=== PATIENT | female | born 1940 | race Caucasian/White ===

== ENCOUNTER 2017-02-01 12:49 | Inpatient (IN) ==
[2017-02-01] MEDS ORDERED: ONDANSETRON 4 MG/2 ML VIAL IV STA (14:07)
[2017-02-01] MEDS ORDERED: ASPIRIN 325 MG TABLET PO STA (14:07)
[2017-02-01] MEDS ORDERED: FUROSEMIDE 100 MG/10 ML VIAL IV STA (14:07)
[2017-02-01] MEDS ORDERED: methylPREDNISolone SOD SUC 125 MG/2 ML VIAL IV STA (14:07)
[2017-02-01] MEDS ORDERED: FUROSEMIDE 100 MG/10 ML VIAL ONE (14:16)
[2017-02-01] MEDS ORDERED: ONDANSETRON 4 MG/2 ML VIAL ONE (14:16)
[2017-02-01] MEDS ORDERED: ASPIRIN 325 MG TABLET ONE (14:16)
[2017-02-01] MEDS ORDERED: methylPREDNISolone SOD SUC 125 MG/2 ML VIAL ONE (14:17)
[2017-02-01 14:18] LABS: Basophils % 0.4 % (0.0-0.8); Eosinophils # 0.1 10*3/uL (0.0-0.87); Eosinophils % 1.3 % (0.00-10.9); Hematocrit 35.9 VOL% (35.7-47.0); Hemoglobin 12.1 GM/DL (12.0-16.0); Immature Granulocytes % 0.3 %; Immature Granulocytes Absolute 0.02 #; Lymphocytes # 1.6 10*3/uL (1.4-4.0); Lymphocytes % 23.1 % (21.3-54.2); Mean Corpuscular HGB Conc 33.7 GM/DL (32-36); Mean Corpuscular Hemoglobin 32 PG (27-34); Mean Corpuscular Volume 94.5 FL (87-102); Mean Platelet Volume 9.8 FL (9.6-12.0); Monocytes # 0.6 10*3/uL (0.11-0.8); Neutrophils # 4.6 10*3/uL (1.4-7.4); Neutrophils % 66.9 % (38.7-73.9); Platelet Count 217 T/CUMM (130-400); Red Cell Distribution Width 13.1 % (9.3-17.3); White Blood Count 6.9 T/CUMM (4-12)
[2017-02-01 14:25] LABS: D-Dimer 1.5 MG/L FEU; PT Patient Result 10.7 SECS
[2017-02-01] MEDS ORDERED: ALBUTEROL 2.5 MG/3 ML NEB RESP TX SCH (14:30)
[2017-02-01 14:32] LABS: Alanine Aminotransferase 38 U/L (13-56); Albumin 3.2 G/DL (3.4-5.0); Alkaline Phosphatase 70 U/L (45-117); Aspartate Amino Transferase 30 U/L (0-37); Blood Urea Nitrogen 16 MG/DL (7-18); Calcium 8.3 MG/DL (8.5-10.1); Glucose 100 MG/DL (74-106); Magnesium 1.9 MG/DL (1.8-2.4); Osmolality,Calculated 283.1 MOS/KG (273-304); Potassium 4.4 MMOL/L (3.5-5.1); Sodium 142 MMOL/L (136-145); Total Protein 6.7 G/DL (6.4-8.3); Troponin I Only < 0.015 NG/ML (0.00-0.045)
--- NOTE | 2017-02-01 14:36 | XRay Report ---
Portable chest Date: 02/01/2017 Clinical history: Shortness of breath Comparison: 07/16/2016 Technique: Portable AP sitting chest Findings: The heart is minimally enlarged with calcification in the aortic knob. Progressive density at the left lung base with minimal diffuse parenchymal findings at the right lung base. Prior right shoulder replacement with additional postoperative findings in the left humerus. Degenerative changes. Impression: Progressive atelectasis/infiltration/edema at the lung bases. Some of the density of the left lung base may be related to overlying soft tissues. It is difficult to exclude a small left pleural effusion. PROCEDURE INTERPRETED AT [facility] DEPARTMENT OF RADIOLOGY Final Report Signed by: Dr. Lesley Anthony
--- NOTE | 2017-02-01 14:44 | EKG Report ---
Stationary ECG Study [facility] ER Test Date: 02/01/2017 2:42:12 PM Pat Name: DOM ROSE Department: Room: Gender: F Trauma Nurse: : 1940 Requested by: Fernando Tirado Order Number: [id number] Reading MD: JOSI MARQUES Intervals [place] Rate: 54 P: 35 MI: 154 QRS: 44 QRSD: 82 T: 81 QT: 449 QTc: 436 Interpretive Statements SINUS BRADYCARDIA at 54 BPM LOW QRS VOLTAGE IN PRECORDIAL LEADS Electronically Signed On 02-03-17 18:36:54 CDT by JOSI MARQUES [email or web address]
[2017-02-01 14:57] LABS: ABG Base Excess -1.1 MMOL/L (-2.5-2.5); ABG HCO3 24.2 MMOL/L (20-26); ABG Oxygen Saturation 98.6 % (95-100); ABG PCO2 42.7 MM HG (35-48); ABG PH 7.372 (7.35-7.45); ABG TCO2 25.6 MMOL/L (23-27)
[2017-02-01] MEDS ORDERED: LEVOFLOXACIN INJ 750 MG in PREMIX 1 EACH IV STA (15:03)
[2017-02-01] MEDS ORDERED: LEVOFLOXACIN INJ 150 ML IV ONE (15:34)
--- NOTE | 2017-02-01 15:54 | Ultrasound Report ---
Exam: Bilateral lower extremity venous Doppler ultrasound Comparison: 04/25/2010 Clinical history: Bilateral lower extremity leg swelling Technique: Duplex scan of the lower extremity veins using B-mode/grayscale scaled imaging and Doppler spectral analysis and color flow. Findings: Major venous structures of the lower extremities demonstrate a normal course and caliber. Normal color-flow study and spectral analysis. There is normal compression and augmentation of bilateral common femoral, superficial femoral and popliteal veins. The proximal bilateral greater saphenous veins appear to be patent. Impression: No evidence to suggest deep venous thrombosis within either lower extremity. Ultrasound images were captured and stored. PROCEDURE INTERPRETED AT [facility] DEPARTMENT OF RADIOLOGY Final Report Signed by: Dr. Lesley Anthony
--- NOTE | 2017-02-01 16:20 | CT Report ---
Exam: CT chest with contrast, PE study Date: 02/01/2017 Comparison: Chest x-ray 02/01/2017 Reason: Shortness of breath, elevated d-dimer Technique: Axial images of the chest were obtained after administration of 80 cc of IV Omnipaque 350 intravenous contrast. Coronal reformatted images were also acquired. The study was performed per pulmonary embolism protocol. Total DLP: 888.10 Findings: There is no evidence of pulmonary embolism with suboptimal contrast in the subsegmental pulmonary arteries. The heart is enlarged with no evidence of aortic dissection. Coronary artery calcification are noted with tortuosity of the arteries arising from the aortic arch. No chest lymphadenopathy. Fatty infiltration of the liver with 35mm hiatal hernia. Degenerative changes are noted. Diffuse groundglass opacities with minimal atelectasis. No pleural effusion or pleural calcification. Impression: No evidence of pulmonary embolism. Suboptimal contrast in the subsegmental pulmonary arteries. Cardiomegaly with coronary artery calcifications. Diffuse groundglass opacities in the lungs which can be seen with edema, pneumonitis, fibrosis, etc. Minimal atelectasis. 35 mm hiatal hernia with fatty infiltration of the liver. This CT exam was performed using one or more the following dose reduction techniques: Automated exposure control, adjustment of the MA and/or KV according to patient size, or use of iterative reconstruction technique. PROCEDURE INTERPRETED AT [facility] DEPARTMENT OF RADIOLOGY Final Report Signed by: Dr. Lesley Anthony
--- NOTE | 2017-02-01 16:55 | Emergency Department Note ---
Nargis Peña Hilary, am scribing for, and in the presence of, Fernando Pantoja MD 13:59. Scarlett Peña Charles R, MD, personally performed the services described in this documentation, ascribed by Preeti Barillas in my presence, and it is both accurate and complete 655 . Arrival - Arrival Chief Complaint: Upper Respiratory Stated Complaint: wheezing/coughing/cant breathe ED Nursing Triage Note: Pt c/o Cough, wheezing, sore throat and SOB since last night Mode of Arrival: Wheelchair Limitations: No Limitations Source: Patient, RN Notes Reviewed - History of Present Illness HPI Narrative: Pt is a 76 y/o female presenting to the ED with c/o wheezing and coughing which onset last night. Pt states that she is having a hard time breathing and it worsens when she lays down. Pts daughter is in the room and states that her legs are swollen and worse than normal and pt denies taking her Lasix pills. Pt has a PMHx of Migraines, a Seizure in 2013, Afib, Bronchitis and diverticulitis. No other complaints or problems stated in the ED. Onset (ago): hour(s) Allergies/Adverse Reactions: Allergies Allergy/AdvReac Type Severity Reaction Status Date / Time Penicillins Allergy Severe ANAPHYLAXIS Verified 06/02/15 12:24 codeine Allergy Intermediate RASH Verified 06/02/15 12:24 topiramate Allergy Intermediate RASH Verified 06/02/15 12:24 zaleplon [From Sonata] AdvReac Intermediate Confusion Verified 07/05/15 12:46 red dye AdvReac Unknown Unknown/Unable Verified 06/02/15 12:24 to obtain Home Medications: Home Medications Medication Instructions Recorded Confirmed Type Ropinirole HCl 2 mg PO BEDTIME 03/20/15 02/01/17 History Simvastatin [Zocor] 40 mg PO BEDTIME tablet 09/12/15 02/01/17 Rx Gabapentin Cap/Tab [Neurontin 1,200 mg PO BID 01/21/16 02/01/17 History Cap/Tab] Omeprazole 20 mg PO DAILY 01/21/16 02/01/17 History levETIRAcetam TAB [Keppra Tab] 250 mg PO QAM 01/21/16 02/01/17 History Topiramate [Topiramate] 50 mg PO BID 07/16/16 02/01/17 History Oxybutynin Chloride [Oxybutynin 5 mg PO BEDTIME 02/01/17 02/01/17 History Chloride ER] Venlafaxine [Effexor] 75 mg PO BID 02/01/17 02/01/17 History levETIRAcetam TAB [Keppra Tab] 500 mg PO BEDTIME 02/01/17 02/01/17 History Review of System - Review of System 12 point system: reviewed and no additional remarkable complaints except as stated - Review of System Constitutional: Absent: fever Respiratory: Present: cough, respiratory distress, wheezing Medical,Surgical,& Family Hx - Medical History Cardio: History of: Cardiac Dysrhythmia Neurology: History of: Migraine, Seizures Respiratory: History of: Bronchitis Genitourinary: History of: Recurring Urinary Tract Infections No history of: Kidney Stones Gastrointestinal: History of: Bowel Obstruction, Diverticulitis/ Diverticulosis , GERD Musculoskeletal: History of: Back/Neck Problems (BACK SURGERY X 3), Musculoskeletal Problems - Surgical History Cardiac Surgeries: Sugical HX of: Cardiac Catheterization Abdominal Surgeries: Surgical HX of: Abdominal Surgery (PARTIAL COLECTOMY), Appendectomy, Colonoscopy Patient denies: Cholecystectomy Reproductive Surgeries: Surgical HX of;: Hysterectomy (1965) Orthopedic Surgeries: Surgical HX of;: Orthopedic Surgery (RIGHT SHOULDER), Total Knee Replacement (BILATERAL) - Social History Smoking Status: Never smoker Exam Vital Signs: Vital Signs Temperature 97.9 F 02/01/17 13:50 Pulse Rate 67 02/01/17 13:50 Respiratory Rate 24 02/01/17 13:50 Blood Pressure 137/66 02/01/17 13:50 O2 Sat by Pulse Oximetry 95 02/01/17 12:50 - General General appearance: alert, in no apparent distress - Head Head exam: Present: atraumatic, normocephalic - Eye Eye exam: Present: normal appearance, PERRL, EOMI - ENT ENT exam: Present: mucous membranes moist, TM's normal bilaterally - Neck Neck exam: Present: full ROM, trachea midline. Absent: tenderness - Chest Chest inspection: Present: symmetric chest wall rise. Absent: tenderness - Respiratory Respiratory exam: Present: rales (bilaterally), respiratory distress (Pt speaks in 1-2 word sentences), rhonchi (bilaterally), wheezes (Decreased breath sounds) - Cardiovascular Cardiovascular exam: Present: regular rate, normal rhythm - Abdominal Exam Abdominal exam: Present: soft - Extremities Exam Extremities exam: Present: full ROM, pedal edema (3+ pedal edema). Absent: tenderness - Back Exam Back exam: Present: full ROM. Absent: tenderness - Neurological Exam Neurological exam: Present: alert, oriented X3, CN II-XII intact. Absent: motor sensory deficit - Psychiatric Psychiatric exam: Present: normal affect, normal mood - Skin Skin exam: Present: warm, dry, intact, normal color. Absent: rash Course - Consultations Consultation #1: Dr. Darrell Hilario will admit for Dr. Dr. Keating Time: 16:54 Results - Labs CBC & BMP: 02/01/17 14:14 02/01/17 14:14 Lab Results: I have reviewed the patients labs Labs: Laboratory Tests 02/01/17 02/01/17 14:14 14:14 WBC 6.9 RBC 3.80 Hgb 12.1 Hct 35.9 Chloride 111 H BUN/Creatinine Ratio 22.00 H Calcium 8.3 L Albumin 3.2 L Albumin/Globulin Ratio 0.9 L Laboratory Tests 02/01/17 14:50 ABG pO2 163.0 H - Diagnostic Findings Procedure: Chest x-ray: report reviewed by me (Progressive atelectasis/ infiltration/edema at the lung bases. Some of the density of the left lung base may be related to overlying soft tissues. It is difficutle to exclude a small left pleural effusion.) Disposition Clinical Impression: Upper respiratory infection, Bronchitis, Acute dyspnea, Pneumonia, Pleural effusion Case discussed with: patient, patient's family Disposition: Still a Patient Condition: Stable Time of Disposition: 16:55
[2017-02-01] MEDS ORDERED: ALBUTEROL/IPRATROPIUM 3 ML NEB RESP TX PRN (19:36)
[2017-02-01] MEDS ORDERED: HYDROmorphone 2 MG/1 ML VIAL IV PRN (19:36)
[2017-02-01] MEDS ORDERED: ACETAMINOPHEN 325 MG TABLET PO PRN (19:36)
[2017-02-01] MEDS ORDERED: ONDANSETRON 4 MG/2 ML VIAL IV PRN (19:36)
[2017-02-01] MEDS: OXYBUTYNIN XL 5 MG TABLET PO SCH (20:29)
[2017-02-01] MEDS: levETIRAcetam 500 MG TABLET PO SCH (20:29)
[2017-02-01] MEDS: rOPINIRole 1 MG TABLET PO SCH (20:29)
[2017-02-01] MEDS: DOCUSATE SODIUM 100 MG CAPSULE PO SCH (20:30)
[2017-02-01] MEDS: TOPIRAMATE 25 MG TABLET PO SCH (20:30)
[2017-02-01] MEDS: SIMVASTATIN 40 MG TABLET PO SCH (20:30)
[2017-02-01] MEDS: VENLAFAXINE 75 MG TABLET PO SCH (20:30)
[2017-02-01] MEDS: GABAPENTIN 600 MG TABLET PO SCH (20:39)
[2017-02-01] MEDS: SODIUM CHLORIDE 0.9% 1,000 ML IV SCH (20:39)
[2017-02-01 22:52] LABS: Troponin I Only 0.041 NG/ML (0.00-0.045)
[2017-02-01] MEDS: methylPREDNISolone SOD SUC 40 MG/1 ML VIAL IV SCH (22:54)
[2017-02-02] MEDS: methylPREDNISolone SOD SUC 40 MG/1 ML VIAL IV SCH ×3 (05:35→21:33)
[2017-02-02 06:14] LABS: Basophils % 0.1 % (0.0-0.8); Hematocrit 37.6 VOL% (35.7-47.0); Hemoglobin 12.2 GM/DL (12.0-16.0); Immature Granulocytes % 0.5 %; Immature Granulocytes Absolute 0.05 #; Lymphocytes # 0.7 10*3/uL (1.4-4.0); Lymphocytes % 7.9 % (21.3-54.2); Mean Corpuscular HGB Conc 32.4 GM/DL (32-36); Mean Corpuscular Hemoglobin 31 PG (27-34); Mean Corpuscular Volume 96.2 FL (87-102); Mean Platelet Volume 9.8 FL (9.6-12.0); Monocytes # 0.2 10*3/uL (0.11-0.8); Monocytes % 1.8 % (1.7-12.7); Neutrophils # 8.3 10*3/uL (1.4-7.4); Neutrophils % 89.7 % (38.7-73.9); Platelet Count 241 T/CUMM (130-400); Red Blood Count 3.91 MC/CUMM (3.8-5.5); Red Cell Distribution Width 13.1 % (9.3-17.3); White Blood Count 9.3 T/CUMM (4-12)
[2017-02-02 06:51] LABS: Alanine Aminotransferase 38 U/L (13-56); Albumin 3.3 G/DL (3.4-5.0); Alkaline Phosphatase 73 U/L (45-117); Aspartate Amino Transferase 20 U/L (0-37); Bilirubin,Total < 0.39 MG/DL (0.2-1.0); Blood Urea Nitrogen 18 MG/DL (7-18); Calcium 8.4 MG/DL (8.5-10.1); Cholesterol 176 MG/DL (50-200); Glucose 180 MG/DL (74-106); HDL Cholesterol 67 MG/DL (40-60); Magnesium 1.9 MG/DL (1.8-2.4); Osmolality,Calculated 289.1 MOS/KG (273-304); Potassium 4.2 MMOL/L (3.5-5.1); Risk Ratio 2.63; Sodium 142 MMOL/L (136-145); Total Protein 7.1 G/DL (6.4-8.3); Triglycerides 47 MG/DL (2-150); VLDL CHOLESTEROL 9.4 MG/DL
--- NOTE | 2017-02-02 07:47 | Family Practice History&Phys ---
Assessment and Plan (1) Chest pain Status: Acute Assessment and plan: 02/02/2017: Will consult cardiology. I think this is atypical chest pain Current Visit: Yes History of Present Illness Chief complaint: Chest pain History of present illness: Ms. Gonzalez is a 76 year old female Patient 76-year-old white female presented emergency room after developing substernal chest tightness. Patient states this occurred at rest and made her short of breath a little sweaty. She became short of breath with this and that alarmed her. She was brought to the emergency room an EKG and initial cardiac isoenzymes were negative. She has seen Dr. Santos in the past for paroxysmal atrial fibrillation requiring DC cardioversion. Patient denies any chest pain at present. She did have a CT of the chest reveal no evidence of pulmonary embolus. She also had lower extremity Dopplers that were negative. She has not noticed any increasing dyspnea with exertion. She states she is faithfully using her CPAP. Home Medications Medication Instructions Recorded Confirmed Type Ropinirole HCl 2 mg PO BEDTIME 03/20/15 02/01/17 History Simvastatin [Zocor] 40 mg PO BEDTIME tablet 09/12/15 02/01/17 Rx Gabapentin Cap/Tab [Neurontin 1,200 mg PO BID 01/21/16 02/01/17 History Cap/Tab] Omeprazole 20 mg PO DAILY 01/21/16 02/01/17 History levETIRAcetam TAB [Keppra Tab] 250 mg PO QAM 01/21/16 02/01/17 History Topiramate [Topiramate] 50 mg PO BID 07/16/16 02/01/17 History Oxybutynin Chloride [Oxybutynin 5 mg PO BEDTIME 02/01/17 02/01/17 History Chloride ER] Venlafaxine [Effexor] 75 mg PO BID 02/01/17 02/01/17 History levETIRAcetam TAB [Keppra Tab] 500 mg PO BEDTIME 02/01/17 02/01/17 History Allergies Allergy/AdvReac Type Severity Reaction Status Date / Time Penicillins Allergy Severe ANAPHYLAXIS Verified 06/02/15 12:24 codeine Allergy Intermediate RASH Verified 06/02/15 12:24 topiramate Allergy Intermediate RASH Verified 06/02/15 12:24 zaleplon [From Sonata] AdvReac Intermediate Confusion Verified 07/05/15 12:46 red dye AdvReac Unknown Unknown/Unable Verified 06/02/15 12:24 to obtain - Constitutional Constitutional: Present: fatigue. Absent: chills, fever(s), weakness - EENT Eyes: Absent: blurry vision, loss of vision Ears: Absent: decreased hearing, ear pain Nose, mouth and throat: Absent: hoarseness, nasal congestion, sinus pressure, sore throat - Cardiovascular Cardiovascular: Present: chest pain at rest, dyspnea, dyspnea on exertion. Absent: diaphoresis, orthopnea, palpitations, PND - Respiratory Respiratory: Present: cough, dyspnea, dyspnea on exertion. Absent: wheezing, snoring - Gastrointestinal Gastrointestinal: Absent: abdominal pain, diarrhea, hematochezia, melena, nausea , vomiting - Genitourinary Genitourinary: Absent: dysuria, hematuria, urinary hesitancy - Musculoskeletal Musculoskeletal: Present: back pain. Absent: arthralgias - Neurological Neurological: Absent: confusion, dizziness - Psychiatric Psychiatric: Absent: anxiety, depression - Endocrine Endocrine: Absent: fatigue, polydipsia, polyphagia - Hematologic/Lymphatic Hematologic/Lymphatic: Absent: easy bleeding, easy bruising Medical,Surgical,& Family Hx - Medical History Cardio: History of: Cardiac Dysrhythmia Psychological: History of: Depression Neurology: History of: Migraine, Seizures (2014) HEENT: History of: Eye Problem (cataracts removed) Respiratory: History of: Bronchitis, Pneumonia Genitourinary: History of: Recurring Urinary Tract Infections No history of: Kidney Stones Gastrointestinal: History of: Bowel Obstruction, Diverticulitis/ Diverticulosis , GERD, Hemorrhoids Musculoskeletal: History of: Back/Neck Problems (BACK SURGERY X 3), Musculoskeletal Problems - Surgical History Cardiac Surgeries: Sugical HX of: Cardiac Catheterization Abdominal Surgeries: Surgical HX of: Abdominal Surgery (PARTIAL COLECTOMY), Appendectomy, Colonoscopy Patient denies: Cholecystectomy Reproductive Surgeries: Surgical HX of;: Hysterectomy (1965) Orthopedic Surgeries: Surgical HX of;: Orthopedic Surgery (RIGHT SHOULDER), Total Knee Replacement (BILATERAL) - Social History Smoking Status: Never smoker Frequency of Alcohol Use: None Type of Drug Use: None Exam - Constitutional Vitals: Period Temp Pulse Resp BP Sys/[place] Pulse Ox Last 24 Hr 97.3 F-98.1 F 74-92 16-20 127-145/58-72 96-99 Exam: General: Objective patient is a well-developed obese white female in no acute distress. She was sleeping soundly when I entered the room but aroused easily. She gave a good history. HEENT: Pupils equal and reactive to light. Patent nares and airway Neck: No meningismus, adenopathy, thyromegaly. There are no auscultated carotid bruits. Cardiovascular: Regular rhythm. No murmurs or gallops Chest: Clear to auscultation without rales rhonchi wheezes. Abdomen: Soft nontender to palpation No masses, rebound, guarding or tenderness. Neuro: Cranial nerves intact and DTRs and strength symmetric in all extremities. Dermatologic: No evidence of abnormal lesions or masses. Musculoskeletal: There is no joint swelling or tenderness or deformity. Extremities: Patient has 3+ pitting pretibial edema of both lower extremities Results - Labs CBC & BMP: 02/02/17 04:54 02/02/17 04:54 Lab Results: I have reviewed the past 24 hour labs - EKG EKG shows: bradycardia (Sinus bradycardia noted.) - Diagnostic Findings Procedure: CT - chest: report reviewed by me (No evidence of PE), Ultrasound: report reviewed by me (No evidence of DVT)
--- NOTE | 2017-02-02 08:14 | EKG Report ---
Stationary ECG Study [facility] Test Date: 02/02/2017 8:14:26 AM Pat Name: DOM ROSE Department: Room: 218 Gender: F Bureau Director: VIJAY : 1940 Requested by: Bryce Martínez Order Number: [id number] Reading MD: JOSI MARQUES Intervals [place] Rate: 80 P: 73 AR: 179 QRS: 72 QRSD: 88 T: 79 QT: 369 QTc: 405 Interpretive Statements SINUS RHYTHM at 80 bpm Electronically Signed On 02-05-17 16:47:53 CDT by JOSI MARQUES [email or web address]
[2017-02-02 08:56] LABS: Troponin I Only 0.019 NG/ML (0.00-0.045)
[2017-02-02] MEDS ORDERED: PANTOPRAZOLE 40 MG VIAL IV SCH (09:00)
--- NOTE | 2017-02-02 09:11 | XRay Report ---
Exam: XR chest 2V Indication: Shortness of breath Comparison study: 02/01/2017 Findings: The cardiac silhouette is borderline enlarged, similar to prior. Contours appear within normal limits There is no focal consolidation, pneumothorax or pleural effusion identified. There is improved aeration within the left lung base, which may represent differences in positioning or resolution of atelectasis/infiltrate. Lungs are mildly hyperexpanded, similar to prior. Postsurgical changes of both shoulders appear similar to prior. Impression: Improved aeration within the left lung base. Otherwise, no active disease. PROCEDURE INTERPRETED AT [facility] DEPARTMENT OF RADIOLOGY Final Report Signed by: Armando Guajardo
[2017-02-02] MEDS: VENLAFAXINE 75 MG TABLET PO SCH ×2 (10:08→21:32)
[2017-02-02] MEDS: GABAPENTIN 600 MG TABLET PO SCH ×2 (10:08→21:32)
[2017-02-02] MEDS: TOPIRAMATE 25 MG TABLET PO SCH ×2 (10:08→21:31)
[2017-02-02] MEDS: PANTOPRAZOLE 40 MG TABLET PO SCH (10:09)
[2017-02-02] MEDS: DOCUSATE SODIUM 100 MG CAPSULE PO SCH ×2 (10:09→21:32)
[2017-02-02] MEDS: levETIRAcetam 250 MG TABLET PO SCH (10:09)
[2017-02-02] MEDS: SODIUM CHLORIDE 0.9% 1,000 ML IV SCH ×2 (10:14→21:33)
--- NOTE | 2017-02-02 11:19 | Pulmonology Consult Note ---
History of Present Illness Chief complaint: Acute bronchitis with bronchospasm. S OB. FENG. History of present illness: Ms. Gonzalez is a 76 year old white female whom I been asked to see in pulmonary consultation for evaluation and treatment. This patient is followed by Dr. Rigoberto Keating and Dr. Louis rico. The patient was in her usual state of health. She went to bed feeling fine. She woke up during the night with severe shortness of breath. She had a burning sensation in her chest and she coughs so hard she developed symptoms of costochondritis. She has had some sputum production and she hears wheezing. She says this has never happened to her before. She denies any solid dysphasia. She occasionally has mild reflux. The patient woke up short of breath she shortly got out of bed and went to the bathroom and vomited. She said she thought she had had too many deviled eggs. The remainder the review of systems are negative. Allergies. Penicillin. Codeine. Topiramate. Sonata. Home medicines. See list. Past history. Atrial fib. Seizure in 2013. History of migraine headache. History of depression. Previous cataract surgery. History of recurrent urinary tract infection. History of diverticulitis and diverticulosis. History of bowel obstruction, gastroesophageal reflux disease and hemorrhoids. Past history of back and neck problems. She has had 3 back surgeries. Partial colectomy. Appendectomy. Hysterectomy 1964. Right shoulder surgery. Bilateral total knee replacements. Social history. Never smoked. Does not use alcohol. 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 Noncontributory. Chest x-ray. No infiltrates. No abnormalities noted CT of the chest. No pulmonary emboli. Hiatal hernia. Doppler venograms of lower extremities. No evidence of deep venous thrombophlebitis. Microbiology. Negative. Lab. Admit white count 6900 with 67 segs 23 lymphs 8 monos. H&H is 12.2/37.6 with normal indices and platelets of 241,000. Electrolytes are normal. Creatinine is 1.0. BUN is 18. Glucoses are within the normal range. Liver function tests are normal. Cardiac enzymes are negative. Natruretic peptide is normal. Total protein is 7.1 with an albumin of 3.3 and a globulin 3.8. Physical exam. Vital signs. See below Eyes face lips tongue are normal. Neck symmetrical. No meningismus. Lymphatics. No submandibular cervical supraclavicular or epitrochlear adenopathy. Chest. Coarse large airway congestion and wheeze. A few high-pitched end expiratory wheezes. Heart. No gallop. Abdomen. Nontender. Positive bowel sounds. Lower extremities. Chronic venous stasis changes. Edema. Erythema along the anterior aspect of the lower legs bilaterally. Appears to be mild lymphangitis Venous exam. Neck and upper extremities are normal. Lower extremities show chronic venous stasis. Arterial. Carotid upstroke is fair. Upper extremity pulses are easily palpable. Lower extremity pulses cannot be palpated secondary to edema. No evidence of ischemia. Neurologic. Cranial nerves are intact. Patient moves all 4 extremities. Skin. No cancerous infectious lesions of the face or hands. Mild lymphangitis of both lower legs. The remainder the exam is noncontributory. Impression. 1. Acute bronchitis and bronchospasm developing during the night. Patient had vomit shortly after this began. I suspect she had aspiration from gastroesophageal reflux during the night. 2. Hiatal hernia 3. History of atrial fib 4. Bilateral lower extremity lymphangitis secondary to chronic venous stasis 5. History of seizure in 2013 6. See past history Plan. 1. Sputum for Gram stain culture and sensitivity. 2. Agree with antibiotics 3. Agree with steroids. 4. Singulair 10 mg daily 5. If peripheral wheezes continue I will consider IV Aminophyllin with attention to the patient's heart rate. Home Medications Medication Instructions Recorded Confirmed Type Ropinirole HCl 2 mg PO BEDTIME 03/20/15 02/01/17 History Simvastatin [Zocor] 40 mg PO BEDTIME tablet 09/12/15 02/01/17 Rx Gabapentin Cap/Tab [Neurontin 1,200 mg PO BID 01/21/16 02/01/17 History Cap/Tab] Omeprazole 20 mg PO DAILY 01/21/16 02/01/17 History levETIRAcetam TAB [Keppra Tab] 250 mg PO QAM 01/21/16 02/01/17 History Topiramate [Topiramate] 50 mg PO BID 07/16/16 02/01/17 History Oxybutynin Chloride [Oxybutynin 5 mg PO BEDTIME 02/01/17 02/01/17 History Chloride ER] Venlafaxine [Effexor] 75 mg PO BID 02/01/17 02/01/17 History levETIRAcetam TAB [Keppra Tab] 500 mg PO BEDTIME 02/01/17 02/01/17 History Allergies Allergy/AdvReac Type Severity Reaction Status Date / Time Penicillins Allergy Severe ANAPHYLAXIS Verified 06/02/15 12:24 codeine Allergy Intermediate RASH Verified 06/02/15 12:24 topiramate Allergy Intermediate RASH Verified 06/02/15 12:24 zaleplon [From Sonata] AdvReac Intermediate Confusion Verified 07/05/15 12:46 red dye AdvReac Unknown Unknown/Unable Verified 06/02/15 12:24 to obtain Exam ([facility]) H&P - Constitutional Vitals: Period Temp Pulse Resp BP Sys/[place] Pulse Ox Last 24 Hr 97.3 F-98.1 F 74-92 16-20 122-145/58-72 96-99 Medical,Surgical,& Family Hx - Medical History Cardio: History of: Cardiac Dysrhythmia Psychological: History of: Depression Neurology: History of: Migraine, Seizures (2013) HEENT: History of: Eye Problem (cataracts removed) Respiratory: History of: Bronchitis, Pneumonia Genitourinary: History of: Recurring Urinary Tract Infections No history of: Kidney Stones Gastrointestinal: History of: Bowel Obstruction, Diverticulitis/ Diverticulosis , GERD, Hemorrhoids Musculoskeletal: History of: Back/Neck Problems (BACK SURGERY X 3), Musculoskeletal Problems - Surgical History Cardiac Surgeries: Sugical HX of: Cardiac Catheterization Abdominal Surgeries: Surgical HX of: Abdominal Surgery (PARTIAL COLECTOMY), Appendectomy, Colonoscopy Patient denies: Cholecystectomy Reproductive Surgeries: Surgical HX of;: Hysterectomy (1965) Orthopedic Surgeries: Surgical HX of;: Orthopedic Surgery (RIGHT SHOULDER), Total Knee Replacement (BILATERAL) - Social History Smoking Status: Never smoker Frequency of Alcohol Use: None Type of Drug Use: None Results - Labs CBC & BMP: 02/02/17 04:54 02/02/17 04:54
[2017-02-02] MEDS: MONTELUKAST 10 MG TABLET PO SCH ×2 (12:39→21:32)
[2017-02-02] MEDS: DEXTROMETHORPHAN ER 6 MG/ML 90 ML/BOTTLE PO PRN (12:45)
[2017-02-02] MEDS: ALBUTEROL/IPRATROPIUM 3 ML NEB RESP TX SCH ×2 (13:32→19:48)
--- NOTE | 2017-02-02 14:00 | Cardiology Consult Note ---
Augie Peña April, RN, am scribing for, and in the presence of, Stan Kramer MD 13:59. Assessment and Plan - Time spent with patient Time spent with patient: Greater than 30 minutes (Due to assessment, planning, documentation, medication) (1) Acute dyspnea Status: Acute Assessment and plan: 1. 76 year-old severely overweight BF with remote history of atrial flutter with cardioversion 2005 (Dr. Santos her primary certified ophthalmic surgical assistant) who was in her usual state of reasonably good health until midnight Wednesday morning when she awakened with sudden severe shortness of breath, diaphoresis, severe cough, and subsequent pleuritic chest pain with tenderness to palpation 2. Normal sinus rhythm is noted with no acute EKG changes, and she is ruled out for myocardial infarction. Her chest pain is clearly reproducible, and appears to be related to forceful coughing. 3. Check echocardiogram to evaluate for structural heart disease 4. Orthopnea noted since her that began 5. One episode of diarrhea 6. 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 Santos Ms. Gonzalez is a 76 year old female who is seen Dr. Santos in the past with a history of atrial flutter, migraine, seizures, bronchitis and pneumonia, recurrent urinary tract infections, bowel obstruction, diverticulitis, reflux, hemorrhoids, and musculoskeletal problems. She had a successful synchronized electrical cardioversion in August 2006 for atrial flutter. I do not have access to the records but she tells me she had a heart cath that was reported as normal several years before that. Other surgical history includes colectomy , appendectomy, hysterectomy, bilateral cataracts, back, right shoulder, bilateral total knee replacements, left arm, and left ankle. Family history is positive for hypertension in mother and siblings, heart disease in mother and siblings, cancer in father and siblings, stroke in mother and siblings, and diabetes in mother and siblings. She reports she is a lifetime non-smoker. Except for being weak and fatigued for about a month or so, she states she was in her usual state of health up until [place] night around midnight when she woke with chest tightness, shortness of breath, wheezing, cough, and dizziness. She also had diarrhea, was vomiting, and was diaphoretic. She tells me her shortness of breath was so bad that she was unable to speak and was worse when lying or walking around, it did improve when she would sit. The chest tightness began around the same time and she describes it as being in the center of her chest and does not radiate. She said it was a constant pain that she rated as a 9-10 on a scale of 1-10. She presented to the emergency department yesterday morning for further evaluation. She is tells me that the chest pain and shortness of breath improved after she got a breathing treatment. Currently she continues to be short of breath, but she tells me that this is improved from when she came to the emergency department. Oxygen is in use via nasal cannula. She currently rates her chest tightness as a 3-4 and a scale of 1-10, and it is sore to touch. She has 2+ edema to both lower extremities, but she states this is her usual amount of swelling. EKG done on admission showed sinus bradycardia with heart rate of 54. Currently telemetry monitoring shows sinus rhythm with heart rate of 69. CT of the chest done yesterday showed no evidence of pulmonary embolism. Venous Doppler done yesterday negative for DVT. Troponin has been negative 3. CC: Rigoberto Keating MD - Home Medications and Allergies Home Medications: Home Medications Medication Instructions Recorded Confirmed Type Ropinirole HCl 2 mg PO BEDTIME 03/20/15 02/01/17 History Simvastatin [Zocor] 40 mg PO BEDTIME tablet 09/12/15 02/01/17 Rx Gabapentin Cap/Tab [Neurontin 1,200 mg PO BID 01/21/16 02/01/17 History Cap/Tab] Omeprazole 20 mg PO DAILY 01/21/16 02/01/17 History levETIRAcetam TAB [Keppra Tab] 250 mg PO QAM 01/21/16 02/01/17 History Topiramate [Topiramate] 50 mg PO BID 07/16/16 02/01/17 History Oxybutynin Chloride [Oxybutynin 5 mg PO BEDTIME 02/01/17 02/01/17 History Chloride ER] Venlafaxine [Effexor] 75 mg PO BID 02/01/17 02/01/17 History levETIRAcetam TAB [Keppra Tab] 500 mg PO BEDTIME 02/01/17 02/01/17 History Allergies/Adverse Reactions: Allergies Allergy/AdvReac Type Severity Reaction Status Date / Time Penicillins Allergy Severe ANAPHYLAXIS Verified 06/02/15 12:24 codeine Allergy Intermediate RASH Verified 06/02/15 12:24 topiramate Allergy Intermediate RASH Verified 06/02/15 12:24 zaleplon [From Sonata] AdvReac Intermediate Confusion Verified 07/05/15 12:46 red dye AdvReac Unknown Unknown/Unable Verified 06/02/15 12:24 to obtain - Constitutional Constitutional: Present: as per HPI - EENT Eyes: Present: blurry vision, requires corrective lense Ears: Absent: decreased hearing, tinnitus Nose, mouth and throat: Present: hoarseness, sore throat. Absent: epistaxis, headache(s), neck pain - Cardiovascular Cardiovascular: Present: chest pain at rest, diaphoresis, dyspnea, dyspnea on exertion, edema, lightheadedness, orthopnea, palpitations. Absent: radiating jaw, neck or arm pain - Respiratory Respiratory: Present: cough, dyspnea, dyspnea on exertion. Absent: hemoptysis - Gastrointestinal Gastrointestinal: Present: abdominal pain, diarrhea, nausea, vomiting. Absent: constipation, hematemesis, hematochezia, melena - Genitourinary Genitourinary: Absent: dysuria, hematuria - Musculoskeletal Musculoskeletal: Present: back pain, limited range of motion, muscle weakness - Neurological Neurological: Present: abnormal gait, dizziness. Absent: abnormal speech, confusion, frequent falls, headache(s), syncope - Psychiatric Psychiatric: Absent: anxiety, confusion, depression - Endocrine Endocrine: Present: fatigue - Hematologic/Lymphatic Hematologic/Lymphatic: Present: easy bruising. Absent: easy bleeding Medical,Surgical,& Family Hx - Medical History Cardio: History of: Cardiac Dysrhythmia (Atrial flutter in 06) Psychological: History of: Depression Neurology: History of: Migraine, Seizures (2013) HEENT: History of: Eye Problem (cataracts removed) Respiratory: History of: Bronchitis, Pneumonia Genitourinary: History of: Recurring Urinary Tract Infections Gastrointestinal: History of: Bowel Obstruction, Diverticulitis/ Diverticulosis , GERD, Hemorrhoids Musculoskeletal: History of: Back/Neck Problems (BACK SURGERY X 3), Musculoskeletal Problems - Surgical History Cardiac Surgeries: Sugical HX of: Cardiac Catheterization Abdominal Surgeries: Surgical HX of: Abdominal Surgery (PARTIAL COLECTOMY), Appendectomy, Colonoscopy Reproductive Surgeries: Surgical HX of;: Hysterectomy (1965) Orthopedic Surgeries: Surgical HX of;: Orthopedic Surgery (Right shoulder, left arm, left ankle), Spinal Surgery (Back 3), Total Knee Replacement (BILATERAL) - Family History Family History: Reports;: Family Cancer (Father and sibling), Family Diabetes ( Mother and siblings), Family Heart Disease (Mother and siblings), Family Hypertension (Mother and siblings), Family Stroke (Mother and siblings) - Social History Smoking Status: Never smoker Have you smoked in the last 12 months: No Frequency of Alcohol Use: None Type of Drug Use: None Lives With:: Children Functional capacity: independent ambulation Physical Examination Vital Signs Temp Pulse Resp BP Pulse Ox 97.9 F 67 24 137/66 95 02/01/17 12:50 02/01/17 12:50 02/01/17 12:50 02/01/17 12:50 02/01/17 12:50 General: Present: Appears Well, No Apparent Distress HEENT: Present: PERRL, Mucus Membranes Moist Neck: Present: Supple Neck, Midline Trachea, No Bruit Cardiac: Present: Reg Rate and Rhythm, No Murmur, Bradycardia Lungs: Present: Normal Breath Sounds, Oxygen (Via nasal cannula), No Wheeze, Rales, Rhonchi Neuro: Absent: Resting Tremor, Essential Tremor Abdomen: Present: Soft, Active Bowel Sounds, Tender Skin: Present: Clear Musculoskeletal: Present: Decreased Range of Motion Extremities: Present: Normal Upper Extr. Pulses, Normal Lower Extr. Pulses, +2 Edema (Bilateral lower extremities). Absent: Normal Gait Result/EKG - Labs CBC & BMP: 02/02/17 04:54 02/02/17 04:54 Lab Results: I have reviewed the past 24 hour labs Labs: Laboratory Results - last 24 hr 02/01/17 02/02/17 02/02/17 22:19 04:54 04:54 WBC 9.3 D RBC 3.91 Hgb 12.2 Hct 37.6 MCV 96.2 MCH 31 MCHC 32.4 RDW 13.1 Plt Count 241 MPV 9.8 Neut % (Auto) 89.7 H Lymph % (Auto) 7.9 L [place] % (Auto) 1.8 Eos % (Auto) 0.0 Baso % (Auto) 0.1 Neut # (Auto) 8.3 H Lymph # (Auto) 0.7 L [place] # (Auto) 0.2 Eos # (Auto) 0.0 Baso # (Auto) 0.0 Immature Gran % 0.5 Nucleated RBC % 0.0 Immature Gran # 0.05 Nucleated RBCs # 0.00 Sodium 142 Potassium 4.2 Chloride 108 H Carbon Dioxide 23 Anion Gap 15.2 H BUN 18 Creatinine 1.00 GFR Calculation 76 BUN/Creatinine Ratio 18.00 Glucose 180 H Calculated Osmolality 289.1 Calcium 8.4 L Magnesium 1.9 Total Bilirubin < 0.39 AST 20 ALT 38 Alkaline Phosphatase 73 Total Creatine Kinase 100 CK-MB (CK-2) 1.9 Troponin I 0.041 B-Natriuretic Peptide Total Protein 7.1 Albumin 3.3 L Globulin 3.8 H Albumin/Globulin Ratio 0.8 L Triglycerides 47 Cholesterol 176 LDL Cholesterol 106.0 VLDL Cholesterol 9.4 HDL Cholesterol 67 H Heart Disease Risk Ratio 2.63 02/02/17 02/02/17 04:54 08:09 WBC RBC Hgb Hct MCV MCH MCHC RDW Plt Count MPV Neut % (Auto) Lymph % (Auto) [place] % (Auto) Eos % (Auto) Baso % (Auto) Neut # (Auto) Lymph # (Auto) [place] # (Auto) Eos # (Auto) Baso # (Auto) Immature Gran % Nucleated RBC % Immature Gran # Nucleated RBCs # Sodium Potassium Chloride Carbon Dioxide Anion Gap BUN Creatinine GFR Calculation BUN/Creatinine Ratio Glucose Calculated Osmolality Calcium Magnesium Total Bilirubin AST ALT Alkaline Phosphatase Total Creatine Kinase 159 D CK-MB (CK-2) 3.1 Troponin I 0.019 B-Natriuretic Peptide 95 Total Protein Albumin Globulin Albumin/Globulin Ratio Triglycerides Cholesterol LDL Cholesterol VLDL Cholesterol HDL Cholesterol Heart Disease Risk Ratio - EKG EKG results: interpreted by me EKG shows: sinus rhythm Nia Peña Randall Scott, MD, personally performed the services described in this documentation, ascribed by Angely Ghosh RN in my presence, and it is both accurate and complete 359 .
[2017-02-02 14:26] LABS: Troponin I Only 0.023 NG/ML (0.00-0.045)
[2017-02-02 18:08] LABS: CKMB % 1.9 %; Troponin I Only 0.022 NG/ML (0.00-0.045)
--- NOTE | 2017-02-02 19:55 | ECHO Report ---
GonzalezMilly Exam Date: 02/02/2017 16:29 Referring Physician: Technologist: Mariia Ernst Age: 76 Ht (in): 70 Wt (lb): 284 Gender: F Exam Location: [facility] Echo Indications: wheezing, cough, acute dyspnea, a fib, sob BP: / HR: 90 Rhythm: Sinus Technical Quality: Technically difficult study IMPRESSIONS Technically difficult study 1+ left atrial enlargement 1+ concentric LVH Normal to hyperdynamic LV systolic function with ejection fraction estimated to be 65-70% without obvious wall motion abnormality Mild tricuspid regurgitation with RVSP 18 mmHg plus RAP MEASUREMENTS (Male / Female) Normal Values 2D ECHO LV Diastolic Diameter PLAX 3.6 cm 4.2 - 5.9 / 3.9 - 5.3 cm LV Systolic Diameter PLAX 2.8 cm LV Fractional Shortening PLAX 23.3 % IVS Diastolic Thickness 1.7 cm 0.6 - 1.0 / 0.6 - 0.9 cm LVPW Diastolic Thickness 1.3 cm 0.6 - 1.0 / 0.6 - 0.9 cm RV Internal Dim ED PLAX 3.2 cm Aortic Root Diameter 2.3 cm LA Systolic Diameter LX 4.2 cm 3.0 - 4.0 / 2.7 - 3.8 cm DOPPLER TR Peak Velocity 209.0 cm/s TR Peak Gradient 17.5 mmHg FINDINGS Left Ventricle Severely increased septal wall thickness. Mildly increased posterior wall thickness. Moderate concentric left ventricular hypertrophy with diastolic dysfunction. Left ventricular ejection fraction is estimated at 550-60 %. Right Ventricle Mildly increased right ventricular size. Right Atrium Normal right atrial size. Left Atrium Mildly increased left atrial diameter. Mitral Valve Mild mitral valve sclerosis. Mild mitral valve regurgitation. Aortic Valve Mild aortic valve sclerosis. Tricuspid Valve Morphologically normal tricuspid valve. Mild tricuspid valve regurgitation. Tricuspid regurgitation velocities suggest a PAP of 17.5 mmHg + RAP. Pulmonic Valve Morphologically normal pulmonic valve. Pericardium No pericardial effusion. Aorta Normal size aortic root and proximal ascending aorta. Stan Kramer (Electronically Signed) Final Date: 02 February 2017 19:54
[2017-02-02] MEDS: rOPINIRole 1 MG TABLET PO SCH (21:32)
[2017-02-02] MEDS: OXYBUTYNIN XL 5 MG TABLET PO SCH (21:32)
[2017-02-02] MEDS: SIMVASTATIN 40 MG TABLET PO SCH (21:32)
[2017-02-02] MEDS: levETIRAcetam 500 MG TABLET PO SCH (21:43)
[2017-02-03] MEDS: ALBUTEROL/IPRATROPIUM 3 ML NEB RESP TX SCH ×4 (00:08→19:04)
[2017-02-03] MEDS: methylPREDNISolone SOD SUC 40 MG/1 ML VIAL IV SCH ×3 (05:09→21:07)
--- NOTE | 2017-02-03 07:54 | Family Practice Progress Note ---
Family Practice - PN: Subj Interval history: Patient states she had a good night and denies any chest pain or shortness of breath this morning. She still has some cough. Echocardiogram yesterday showed no acute abnormality. Patient states certainly breathing better not having any dyspnea at rest. Exam (Progress Note) - Constitutional Vitals: Period Temp Pulse Resp BP Sys/[place] Pulse Ox Last 24 Hr 97.5 F-99.4 F 54-83 18-20 122-162/59-74 93-100 Exam: Objectively well-developed white female in no acute distress. She is sleeping soundly when I came to see her this morning. She has no dyspnea at rest Cardiovascular: Heart rates regular without murmurs or gallops. Respiratory: Lungs essentially clear bilaterally except for an occasional scant expiratory wheeze. Abdomen: Abdomen soft and nontender. Results - Labs CBC & BMP: 02/02/17 04:54 02/02/17 04:54 Lab Results: I have reviewed the past 24 hour labs Assessment and Plan (1) Chest pain Status: Acute Assessment and plan: 02/02/2017: Will consult cardiology. I think this is atypical chest pain 02/03/2017: Patient's enzymes remain negative. Current Visit: Yes
[2017-02-03] MEDS: TOPIRAMATE 25 MG TABLET PO SCH ×2 (08:54→21:09)
[2017-02-03] MEDS: ENOXAPARIN 40 MG/0.4 ML SYRINGE SUBCUT SCH (08:54)
[2017-02-03] MEDS: GABAPENTIN 600 MG TABLET PO SCH ×2 (08:54→21:10)
[2017-02-03] MEDS: DOCUSATE SODIUM 100 MG CAPSULE PO SCH ×2 (08:54→21:08)
[2017-02-03] MEDS: VENLAFAXINE 75 MG TABLET PO SCH ×2 (08:54→21:09)
[2017-02-03] MEDS: PANTOPRAZOLE 40 MG TABLET PO SCH (08:55)
[2017-02-03] MEDS: levETIRAcetam 250 MG TABLET PO SCH (08:55)
[2017-02-03] MEDS: MONTELUKAST 10 MG TABLET PO SCH ×2 (08:55→21:08)
--- NOTE | 2017-02-03 08:55 | Cardiology Progress Note ---
Assessment and Plan (1) Acute dyspnea Status: Acute Assessment and plan: 1. 76 year-old severely overweight BF with remote history of atrial flutter with cardioversion 2005 (Dr. Santos her primary contact center team lead) who was in her usual state of reasonably good health until midnight Wednesday morning when she awakened with sudden severe shortness of breath, diaphoresis, severe cough, and subsequent pleuritic chest pain with tenderness to palpation 2. Normal sinus rhythm is noted with no acute EKG changes, and she is ruled out for myocardial infarction. Her chest pain is clearly reproducible, and appears to be related to forceful coughing. 3. Check echocardiogram to evaluate for structural heart disease 4. Orthopnea noted since her that began 5. One episode of diarrhea 6. Suspect infectious etiology February 03 update: 1. Mrs. Gonzalez is modestly improved today but still has dyspnea on exertion walking around the room 2. Ejection fraction 65-70% with normal PA pressure noted on echocardiogram 3. CT showed no PE or gross abnormality 4. She has ruled out for myocardial infarction 5. Presentation sounds physician may have infectious process (severe coughing, diarrhea episode, etc.) 6. Blood pressure control is helpful if she has some diastolic dysfunction 7. Follow-up with Dr. Santos in approximately 2 weeks' time 8. We'll sign off; please call if needed prior to discharge. Current Visit: Yes (2) Chest pain Status: Acute Current Visit: Yes Cardiology - PN: Subj Interval history: Mrs. Gonzalez has less dyspnea and is not having chest pain this morning. She has no shortness of breath at rest but does get short of breath when she walks around the room. We discussed at length her need to lose significant weight to maintain her mobility. She does admit she eats a lot of sweets. Exam (Progress Note) - Constitutional Vitals: Period Temp Pulse Resp BP Sys/[place] Pulse Ox Last 24 Hr 97.5 F-99.4 F 54-87 18-24 130-162/68-83 91-100 General appearance: mild distress, over weight - Head Head exam: Present: normal inspection, normocephalic, atraumatic - Neck Neck exam: Present: normal inspection - Respiratory Respiratory exam: Present: rales. Absent: rhonchi, stridor, wheezes - Cardiovascular Cardiovascular exam: Absent: diastolic murmur, rubs, systolic murmur - GI/Abdominal GI/Abdominal exam: Present: soft. Absent: tenderness - Extremities Exam Extremities exam: Present: edema - Neurological Exam Neurological exam: Present: alert, oriented X3, normal gait Result/EKG - Labs CBC & BMP: 02/02/17 04:54 02/02/17 04:54 Labs: Laboratory Results - last 24 hr 02/02/17 02/02/17 02/02/17 08:09 13:44 17:10 Total Creatine Kinase 159 D 197 H D 299 H D CK-MB (CK-2) 3.1 4.6 H 5.8 H CK and CKMB Interp 1.9 Troponin I 0.019 0.023 0.022 Specialty Discharge - Follow Up or Referrals Follow up with: Romel Santos MD [Physician] - 2 Weeks (With EKG FLP CMP CBC)
--- NOTE | 2017-02-03 10:39 | Pulmonology Progress Note ---
Pulmonary - PN: Subj Interval history: This is a 76-year-old white female whom I saw in pulmonary consultation 2016. My impressions were. 1. Acute bronchitis and bronchospasm developing during the night. Patient had vomit shortly after this began. I suspect she had aspiration from gastroesophageal reflux during the night. 2. Hiatal hernia 3. History of atrial fib 4. Bilateral lower extremity lymphangitis secondary to chronic venous stasis 5. History of seizure in 2013 6. See past history 02/03/2017. Patient's breathing is much better. She has a lot less congestion and a lot less wheeze. She is having trouble mobilizing her sputum. I am going to add Acapella to inhalation therapy and will also add inhalation therapy with Pulmozyme. Patient has severe costochondritis and I am going to put a Flector patch along her sternum every 12 hours. We will repeat her chest x-ray tomorrow. Blood cultures are negative. No sputum's have been reported. Doppler venograms were negative. Echocardiogram showed an ejection fraction of 5055% range with left ventricular hypertrophy and mild mitral regurgitation. Labs been reviewed. Medicines have been reviewed. Physical exam. Vital signs. See below Psychiatric oriented 3 Neurologic. Cranial nerves are intact. Long track motor functions intact. Neck. Symmetrical. No meningismus. Lymphatics. No submandibular cervical supraclavicular or epitrochlear adenopathy. Chest. Mild tracheal and large airway wheeze with associated congestion. Bilateral anterior costochondritis which is painful to pressure Heart. No gallop Abdomen. Nontender Lower extremities. Previously noted bilateral lymphangitis is improved significantly. The remainder the physical exam is noncontributory Plan. 1. Sputum for Gram stain culture and sensitivity. 2. Agree with antibiotics 3. Agree with steroids. 4. Singulair 10 mg daily 5. If peripheral wheezes continue I will consider IV Aminophyllin with attention to the patient's heart rate. 6. 02/03/2017. Patient's better. Continue present therapy. See addition to my note from today's date Exam (Progress Note) - Constitutional Vitals: Period Temp Pulse Resp BP Sys/[place] Pulse Ox Last 24 Hr 97.5 F-99.4 F 54-87 18-24 130-162/68-83 91-100 Results - Labs CBC & BMP: 02/02/17 04:54 02/02/17 04:54 Specialty Discharge - Follow Up or Referrals Follow up with: Romel Santos MD [Physician] - 2 Weeks (With EKG FLP CMP CBC)
[2017-02-03] MEDS: DICLOFENAC 1.3% PATCH 5/PACK TRANSDERM SCH ×2 (11:27→21:07)
[2017-02-03] MEDS: DORNASE ALFA 2.5 MG/2.5 ML VIAL RESP TX SCH (19:04)
[2017-02-03] MEDS: levETIRAcetam 500 MG TABLET PO SCH (21:08)
[2017-02-03] MEDS: SIMVASTATIN 40 MG TABLET PO SCH (21:09)
[2017-02-03] MEDS: OXYBUTYNIN XL 5 MG TABLET PO SCH (21:09)
[2017-02-03] MEDS: rOPINIRole 1 MG TABLET PO SCH (21:09)
[2017-02-04] MEDS: ALBUTEROL/IPRATROPIUM 3 ML NEB RESP TX SCH ×2 (00:18→07:13)
[2017-02-04] MEDS: methylPREDNISolone SOD SUC 40 MG/1 ML VIAL IV SCH ×2 (04:07→12:44)
[2017-02-04] MEDS: DEXTROMETHORPHAN ER 6 MG/ML 90 ML/BOTTLE PO PRN (04:07)
[2017-02-04] MEDS: DORNASE ALFA 2.5 MG/2.5 ML VIAL RESP TX SCH (07:39)
--- NOTE | 2017-02-04 07:53 | Discharge Summary ---
Hospital Course - Hospital Course Hospital Course: Patient is a 76-year-old white female admitted to the emergency room with chest pain. Patient has been having cough and congestion as well. She was noted to have chest wall tenderness. Patient's cardiac isoenzymes were followed and remained negative. She was seen by pulmonary and cardiology and medication changes were implemented. Patient improved dramatically and will be discharged home today. Diagnosis - Discharge Diagnosis (1) Chest pain Status: Acute Specialty Discharge - Follow Up or Referrals Follow up with: Romel Santos MD [Physician] - 2 Weeks (With EKG FLP CMP CBC) Discharge Plan - Discharge Data Disposition: Disch To Home/Self Care Condition at Discharge: Stable Discharge Diet: advance to your usual diet Activity: resume usual activities as tolerated Hygiene: no restrictions Weight Bearing at Discharge: full weight bearing Driving: no restrictions Contact your physician if you experience:: fever over 101 - Discharge Medications New Acetaminophen Tab [Tylenol Tab] 650 mg PO Q6H PRN #0 tablet PRN Reason: Fever > 100.4 Or Headache Dextromethorphan ER Liquid [Delsym] 60 mg PO BID PRN #0 bottle PRN Reason: Cough Montelukast Tab [Singulair Tab] 10 mg PO BID #30 tablet predniSONE TAB [PredniSONE] 20 mg PO DAILY #7 tablet Levofloxacin Tab [Levaquin Tab] 250 mg PO DAILY #7 tablet Continue Ropinirole HCl 2 mg PO BEDTIME Simvastatin [Zocor] 40 mg PO BEDTIME tablet Omeprazole 20 mg PO DAILY Gabapentin Cap/Tab [Neurontin Cap/Tab] 1,200 mg PO BID levETIRAcetam TAB [Keppra Tab] 250 mg PO QAM Topiramate 50 mg PO BID levETIRAcetam TAB [Keppra Tab] 500 mg PO BEDTIME Oxybutynin Chloride [Oxybutynin Chloride ER] 5 mg PO BEDTIME Venlafaxine [Effexor] 75 mg PO BID - Follow Up or Referral Follow Up: Romel Santos MD [Physician] - 2 Weeks (With EKG FLP CMP CBC) - Forms/Instructions Exam - Constitutional Vitals: Period Temp Pulse Resp BP Sys/[place] Pulse Ox Last 24 Hr 97.5 F-98.1 F 64-83 18-24 133-160/63-83 95-100 Exam: Objectively well-developed white female in no acute distress. She is awake and complaining of some lower extremity swelling this morning. She has no dyspnea at rest Cardiovascular: Heart rates regular without murmurs or gallops. Respiratory: Lungs essentially clear bilaterally except for an occasional scant expiratory wheeze. Abdomen: Abdomen soft and nontender. Extremities: Patient has 2+ pitting pretibial edema Discharge Results Procedures and tests throughout hospitalization: Pending Orders 02/02/17 11:12 Sputum Culture and Gram Stain Routine DS: Provider Date of admission: 02/01/17 17:18 Primary care physician: . No PCP Attending physician on admission: Rigoberto Keating MD Consults: 02/01/17 19:36 Consult to Case Mgmt/Social Srvs [CONS] Routine Reason for Case Mgmt/Social Srvs: Discharge Planning Consult to Physician [CONS] Routine Comment: Shortness of breath/bronchitis Consulting Provider: Toby Mortensen When should Consulting Provider be notified: In am Person Notified: ady Date Notified: 02/02/17 Time Notified: 07:36 02/02/17 07:44 Consult to Physician [CONS] Routine Comment: Consulting Provider: Cardiology - [facility] Person Notified: RENAY Date Notified: 02/02/17 Time Notified: 07:57 Discharging clinician: Rigoberto Keating MD Expected date of discharge: 02/04/17
[2017-02-04] MEDS: DOCUSATE SODIUM 100 MG CAPSULE PO SCH (08:35)
[2017-02-04] MEDS: GABAPENTIN 600 MG TABLET PO SCH (08:35)
[2017-02-04] MEDS: PANTOPRAZOLE 40 MG TABLET PO SCH (08:35)
[2017-02-04] MEDS: VENLAFAXINE 75 MG TABLET PO SCH (08:35)
[2017-02-04] MEDS: MONTELUKAST 10 MG TABLET PO SCH (08:35)
[2017-02-04] MEDS: levETIRAcetam 250 MG TABLET PO SCH (08:35)
[2017-02-04] MEDS: ENOXAPARIN 40 MG/0.4 ML SYRINGE SUBCUT SCH (08:35)
[2017-02-04] MEDS: TOPIRAMATE 25 MG TABLET PO SCH (08:35)
[2017-02-04] MEDS: DICLOFENAC 1.3% PATCH 5/PACK TRANSDERM SCH (08:41)
[2017-02-04] MEDS ORDERED: LEVOFLOXACIN INJ 500 MG in PREMIX 1 EACH IV SCH (09:00)
[2017-02-04] MEDS ORDERED: FUROSEMIDE 20 MG/2 ML VIAL IV ONE (09:00)
[2017-02-04] MEDS ORDERED: metOLazone 2.5 MG TABLET PO SCH (11:00)
--- NOTE | 2017-02-04 11:37 | Pulmonology Progress Note ---
Pulmonary - PN: Subj Interval history: Jeffrey Lizama, ANP-BC, GNP-BC, acting as scribe for Dr. Toby Mortensen This is a 76-year-old white female who we saw in initial pulmonary consultation on 02/02/2017. At that time, our impressions were: 1. Acute bronchitis and bronchospasm developing during the night. Patient had vomit shortly after this began. I suspect she had aspiration from gastroesophageal reflux during the night. 2. Hiatal hernia 3. History of atrial fib 4. Bilateral lower extremity lymphangitis secondary to chronic venous stasis 5. History of seizure in 2013 6. See past history 02/03/2017. Patient's breathing is much better. She has a lot less congestion and a lot less wheeze. She is having trouble mobilizing her sputum. I am going to add Acapella to inhalation therapy and will also add inhalation therapy with Pulmozyme. Patient has severe costochondritis and I am going to put a Flector patch along her sternum every 12 hours. We will repeat her chest x-ray tomorrow. Blood cultures are negative. No sputum's have been reported. Doppler venograms were negative. Echocardiogram showed an ejection fraction of 5055% range with left ventricular hypertrophy and mild mitral regurgitation. Labs been reviewed. Medicines have been reviewed. 02/04/17. The patient complains of bilateral lower extremity edema. She states this has been a long time problem for her. The explanation for her edema was discussed. She was told to elevate her feet as much as possible and pump them back and forth to help facilitate fluid movement. She understands this and agrees. The edema is causing more erythema today. In light of all things, we have started Zaroxolyn 2.5mg PO daily and she will follow-up with Dr. Keating. She states that she is to be discharged today. Medications have been reviewed. Labs have been reviewed. Exam (Progress Note) - Constitutional Vitals: Period Temp Pulse Resp BP Sys/[place] Pulse Ox Last 24 Hr 97.5 F-98 F 60-78 18-22 133-153/63-74 95-100 Exam: Chest is clear Heart no gallop Abd is nontender and nondistended; BS positive x 4 Ext...as above Psych oriented x 3 Neuro long tract motor function is intact Plan: Start Zaroxolyn 2.5mg PO daily. Your plans for discharge are noted. We will sign off. Please reconsult PRN. Results - Labs CBC & BMP: 02/02/17 04:54 02/02/17 04:54 Specialty Discharge - Follow Up or Referrals Follow up with: Romel Santos MD [Physician] - 02/18/17 10:30 am (With EKG FLP CMP CBC on February AT 1000 YOU MAY COME EARLIER IF YOU WANT...PLEASE CALL [phone]. DO NOT EAT OR DRINK BEFORE YOUR LAB WORK.)
[2017-02-04 11:38] VITALS: BP 112/72
--- NOTE | 2017-02-10 16:27 | Physician Query Form ---
CLICK EDIT DOCUMENT TO SELECT QUERY ANSWER --> OK --> SIGN Nesha Dillon RN Clinical Link Cutter W) [phone] (f) [phone] [email or web address] PROVIDERS: Make your selection(s) from the choices in EACH section by typing an "x" and enter comments in the comment section. Please use your independent medical judgment in providing your response. This request does not imply that any particular answer is desired or expected. CLINICAL INDICATORS: (Providers should not edit this section) Based on documentation of "Pneumonia" CXR shows progressive atelectasis/ infiltration/edema at the lung bases. Treated with IV Levaquin. Based on the above, could you clarify the appropriate diagnosis, if significant , that supports the above abnormalities and additional evaluation, monitoring, and/or treatment rendered: (x ) Was treated for pneumonia ( ) Was not treated for pneumonia ( ) Other, please specify: ( ) Clinically unable to determine COMMENTS: Use of terms such as suspected, likely, or probable (associated with a specific diagnosis that is being evaluated, monitored, or treated as if it exists) are acceptable and can be restated in the discharge summary if not ruled out. MTDD
== END 2017-02-04 14:30 | disposition home or self-care (01) | DRG 194 ==
LOC: N.ED 12:49 → N.EDINP 17:18 → N.2E 17:58
PROVIDERS: ADMIT Family Medicine; ATTEND Family Medicine

== ENCOUNTER 2017-12-04 10:38 | Inpatient (IN) ==
[2017-12-04] MEDS ORDERED: ALBUTEROL/IPRATROPIUM 3 ML NEB RESP TX STA ×3 (12:38→12:39)
[2017-12-04] MEDS ORDERED: methylPREDNISolone SOD SUC 125 MG/2 ML VIAL IV STA (12:47)
[2017-12-04] MEDS ORDERED: methylPREDNISolone SOD SUC 125 MG/2 ML VIAL ONE (12:57)
[2017-12-04 13:04] LABS: Basophils % 0.6 % (0.0-0.8); Eosinophils # 0.1 10*3/uL (0.0-0.87); Immature Granulocytes % 0.6 %; Immature Granulocytes Absolute 0.03 #; Lymphocytes # 1.4 10*3/uL (1.4-4.0); Lymphocytes % 27.6 % (21.3-54.2); Mean Corpuscular HGB Conc 32.5 GM/DL (32-36); Mean Corpuscular Hemoglobin 31 PG (27-34); Mean Corpuscular Volume 95.2 FL (87-102); Mean Platelet Volume 9.5 FL (9.6-12.0); Monocytes # 0.7 10*3/uL (0.11-0.8); Monocytes % 13.5 % (1.7-12.7); Neutrophils # 2.8 10*3/uL (1.4-7.4); Neutrophils % 56.7 % (38.7-73.9); Platelet Count 205 T/CUMM (130-400); Red Cell Distribution Width 14.7 % (9.3-17.3)
[2017-12-04 13:21] LABS: Lactic Acid 1.4 MMOL/L (0.4-2.0)
[2017-12-04 13:28] LABS: Bilirubin,Total 0.5 MG/DL (0.2-1.0); Calcium 8.7 MG/DL (8.5-10.1); Osmolality,Calculated 278.4 MOS/KG (273-304); Potassium 3.6 MMOL/L (3.5-5.1); Total Protein 7.4 G/DL (6.4-8.3)
[2017-12-04 13:29] LABS: CKMB % 1.4 %; Troponin I Only 0.025 NG/ML (0.00-0.045)
[2017-12-04] MEDS ORDERED: guaiFENesin 200 MG/10 ML UDCUP PO STA (13:47)
[2017-12-04] MEDS ORDERED: hydrOXYzine HCL 25 MG/1 ML VIAL IM ONE (13:47)
[2017-12-04] MEDS ORDERED: FUROSEMIDE 40 MG/4 ML VIAL IV STA (13:51)
[2017-12-04] MEDS ORDERED: guaiFENesin 200 MG/10 ML UDCUP ONE (13:55)
[2017-12-04] MEDS ORDERED: HydrOXYzine PAMOATE 25 MG CAPSULE PO STA (13:59)
[2017-12-04] MEDS ORDERED: HydrOXYzine PAMOATE 25 MG CAPSULE ONE (14:03)
[2017-12-04] MEDS ORDERED: FUROSEMIDE 40 MG/4 ML VIAL ONE (14:03)
[2017-12-04] MEDS ORDERED: ONDANSETRON 4 MG/2 ML VIAL IV STA (14:27)
[2017-12-04] MEDS ORDERED: ONDANSETRON 4 MG/2 ML VIAL ONE (14:29)
[2017-12-04 14:39] LABS: Apearance,Urine CLEAR (Clear); Bacteria,Urine Occasional /HPF (Few); Bilirubin,Urine Negative (Negative); Blood, Urine Small mg/dL (Negative); Glucose,Urine (UA) Negative (Negative); Ketones,Urine Negative (Negative); Nitrite,Urine Negative (Negative); Protein,Urine Negative; RBC,Urine 2 /HPF (0-4); Squamous Epithelial Cell,Urine Occasional /HPF (0-10); Urine Color Straw (Yellow); Urine Specific Gravity 1.025 (1.001-1.035); Urine Urobilinogen < 2.0 EU/DL (0.2-1.0); WBC,Urine 1 /HPF (0-6)
[2017-12-04] MEDS ORDERED: ONDANSETRON 4 MG/2 ML VIAL IV PRN (16:00)
[2017-12-04] MEDS ORDERED: ALBUTEROL/IPRATROPIUM 3 ML NEB RESP TX PRN (16:00)
[2017-12-04] MEDS: guaiFENesin 200 MG/10 ML UDCUP PO PRN (20:05)
[2017-12-04] MEDS ORDERED: FLUTICASONE 50 MCG NASAL SPRAY 16 GM BOTTLE BOTH NARES PRN (22:05)
[2017-12-04] MEDS: levETIRAcetam 250 MG TABLET PO SCH (22:34)
[2017-12-04] MEDS: OXYBUTYNIN 5 MG TABLET PO SCH (22:34)
[2017-12-04] MEDS: TOPIRAMATE 25 MG TABLET PO SCH (22:34)
[2017-12-04] MEDS: rOPINIRole 1 MG TABLET PO SCH (22:34)
[2017-12-04] MEDS: VENLAFAXINE 75 MG TABLET PO SCH (22:35)
[2017-12-04] MEDS: SIMVASTATIN 40 MG TABLET PO SCH (22:35)
[2017-12-04] MEDS: GABAPENTIN 600 MG TABLET PO SCH (22:35)
[2017-12-04] MEDS: PHENOL 1.4% THROAT SPRAY 177 ML BOTTLE PO PRN (22:56)
[2017-12-05] MEDS: BENZONATATE 100 MG CAPSULE PO PRN (02:57)
[2017-12-05] MEDS ORDERED: PANTOPRAZOLE 40 MG TABLET PO SCH (09:00)
[2017-12-05] MEDS ORDERED: levETIRAcetam 250 MG TABLET PO SCH (09:00)
[2017-12-05] MEDS: GABAPENTIN 600 MG TABLET PO SCH ×2 (09:18→20:28)
[2017-12-05] MEDS: VENLAFAXINE 75 MG TABLET PO SCH ×2 (09:19→20:29)
[2017-12-05] MEDS: TOPIRAMATE 25 MG TABLET PO SCH ×2 (09:24→20:33)
[2017-12-05] MEDS: guaiFENesin 200 MG/10 ML UDCUP PO PRN ×2 (09:24→19:50)
[2017-12-05] MEDS: ACETAMINOPHEN 325 MG TABLET PO PRN (10:09)
[2017-12-05] MEDS: ALBUTEROL/IPRATROPIUM 3 ML NEB RESP TX SCH ×4 (11:00→23:25)
[2017-12-05] MEDS: methylPREDNISolone SOD SUC 40 MG/1 ML VIAL IV SCH ×2 (11:26→19:51)
[2017-12-05] MEDS: HYDROcodone/CHLORPHENIRAMINE ER 5 ML UDCUP PO SCH ×2 (11:30→20:32)
[2017-12-05] MEDS: rOPINIRole 1 MG TABLET PO SCH (20:28)
[2017-12-05] MEDS: SIMVASTATIN 40 MG TABLET PO SCH (20:32)
[2017-12-05] MEDS: levETIRAcetam 250 MG TABLET PO SCH (20:33)
[2017-12-05] MEDS: OXYBUTYNIN 5 MG TABLET PO SCH (20:34)
[2017-12-06] MEDS: methylPREDNISolone SOD SUC 40 MG/1 ML VIAL IV SCH ×3 (03:11→18:02)
[2017-12-06] MEDS: ALBUTEROL/IPRATROPIUM 3 ML NEB RESP TX SCH ×6 (03:16→23:54)
[2017-12-06] MEDS: guaiFENesin 200 MG/10 ML UDCUP PO PRN (03:37)
[2017-12-06] MEDS: ACETAMINOPHEN 325 MG TABLET PO PRN ×2 (05:05→08:45)
[2017-12-06] MEDS: BENZONATATE 100 MG CAPSULE PO PRN (05:05)
[2017-12-06] MEDS: HYDROcodone/CHLORPHENIRAMINE ER 5 ML UDCUP PO SCH ×2 (08:44→21:29)
[2017-12-06] MEDS: PHENOL 1.4% THROAT SPRAY 177 ML BOTTLE PO PRN (08:47)
[2017-12-06] MEDS ORDERED: BENZONATATE 100 MG CAPSULE PO PRN (09:00)
[2017-12-06] MEDS ORDERED: FLUTICASONE 50 MCG NASAL SPRAY 16 GM BOTTLE BOTH NARES PRN (11:30)
[2017-12-06] MEDS: VENLAFAXINE 75 MG TABLET PO SCH ×2 (11:52→21:26)
[2017-12-06] MEDS: GABAPENTIN 600 MG TABLET PO SCH ×2 (11:52→21:24)
[2017-12-06] MEDS: PANTOPRAZOLE 40 MG TABLET PO SCH (11:53)
[2017-12-06] MEDS: levETIRAcetam 250 MG TABLET PO SCH (11:53)
[2017-12-06] MEDS ORDERED: NON-FORMULARY MEDICATION (Simvastatin [Zocor] 40 MG) PO SCH (21:00)
[2017-12-06] MEDS ORDERED: OXYBUTYNIN CHLORIDE 5 MG PO SCH (21:00)
[2017-12-06] MEDS: rOPINIRole 1 MG TABLET PO SCH (21:23)
[2017-12-06] MEDS: SIMVASTATIN 40 MG TABLET PO SCH (21:24)
[2017-12-06] MEDS: OXYBUTYNIN 5 MG TABLET PO SCH (21:24)
[2017-12-06] MEDS: levETIRAcetam 500 MG TABLET PO SCH (21:25)
[2017-12-06] MEDS: TOPIRAMATE 25 MG TABLET PO SCH (21:27)
[2017-12-07] MEDS: ALBUTEROL/IPRATROPIUM 3 ML NEB RESP TX SCH ×5 (03:35→20:45)
[2017-12-07] MEDS: methylPREDNISolone SOD SUC 40 MG/1 ML VIAL IV SCH ×3 (03:49→22:20)
[2017-12-07] MEDS ORDERED: ALBUTEROL/IPRATROPIUM 3 ML NEB RESP TX PRN (07:30)
[2017-12-07] MEDS: GABAPENTIN 600 MG TABLET PO SCH ×2 (09:06→22:23)
[2017-12-07] MEDS: PANTOPRAZOLE 40 MG TABLET PO SCH (09:07)
[2017-12-07] MEDS: levETIRAcetam 250 MG TABLET PO SCH (09:07)
[2017-12-07] MEDS: TOPIRAMATE 25 MG TABLET PO SCH ×2 (09:07→22:24)
[2017-12-07] MEDS: HYDROcodone/CHLORPHENIRAMINE ER 5 ML UDCUP PO SCH ×2 (09:08→22:21)
[2017-12-07] MEDS: VENLAFAXINE 75 MG TABLET PO SCH ×2 (09:08→22:23)
[2017-12-07] MEDS ORDERED: BISACODYL 10 MG SUPP RECTAL ONE (15:52)
[2017-12-07] MEDS: FUROSEMIDE 40 MG/4 ML VIAL IV SCH (16:46)
[2017-12-07] MEDS: rOPINIRole 1 MG TABLET PO SCH (22:23)
[2017-12-07] MEDS: OXYBUTYNIN 5 MG TABLET PO SCH (22:24)
[2017-12-07] MEDS: SIMVASTATIN 40 MG TABLET PO SCH (22:25)
[2017-12-07] MEDS: levETIRAcetam 500 MG TABLET PO SCH (22:25)
[2017-12-07] MEDS: APIXABAN 5 MG TABLET PO SCH (22:25)
[2017-12-08] MEDS: ALBUTEROL/IPRATROPIUM 3 ML NEB RESP TX SCH ×4 (00:25→11:08)
[2017-12-08 05:21] LABS: Hematocrit 40.4 VOL% (35.7-47.0); Hemoglobin 13.7 GM/DL (12.0-16.0); Immature Granulocytes % 0.5 %; Immature Granulocytes Absolute 0.04 #; Lymphocytes # 1.2 10*3/uL (1.4-4.0); Lymphocytes % 14.1 % (21.3-54.2); Mean Corpuscular HGB Conc 33.9 GM/DL (32-36); Mean Corpuscular Hemoglobin 31 PG (27-34); Mean Platelet Volume 9.7 FL (9.6-12.0); Monocytes # 0.4 10*3/uL (0.11-0.8); Monocytes % 4.2 % (1.7-12.7); Neutrophils # 6.7 10*3/uL (1.4-7.4); Neutrophils % 81.2 % (38.7-73.9); Platelet Count 237 T/CUMM (130-400); Red Blood Count 4.44 MC/CUMM (3.8-5.5); Red Cell Distribution Width 14.2 % (9.3-17.3); White Blood Count 8.2 T/CUMM (4-12)
[2017-12-08 06:10] LABS: Calcium 8.9 MG/DL (8.5-10.1); Osmolality,Calculated 284.4 MOS/KG (273-304); Potassium 3.9 MMOL/L (3.5-5.1); Thyroid Stimulating Hormone 0.188 uIU/ml (0.358-3.74)
[2017-12-08] MEDS: methylPREDNISolone SOD SUC 40 MG/1 ML VIAL IV SCH ×2 (06:20→13:59)
[2017-12-08 07:22] LABS: Lymphocytes 12 % (20-55); Platelet Estimate Adequate; Segmented Neutrophils 86 % (50-85); Total Cells Counted 100
[2017-12-08 07:23] LABS: Giant Platelets Few; Hypochromasia Slight; Ovalocytes Slight
[2017-12-08] MEDS: PANTOPRAZOLE 40 MG TABLET PO SCH (09:18)
[2017-12-08] MEDS: GABAPENTIN 600 MG TABLET PO SCH (09:18)
[2017-12-08] MEDS: levETIRAcetam 250 MG TABLET PO SCH (09:18)
[2017-12-08] MEDS: HYDROcodone/CHLORPHENIRAMINE ER 5 ML UDCUP PO SCH (09:19)
[2017-12-08] MEDS: TOPIRAMATE 25 MG TABLET PO SCH (09:19)
[2017-12-08] MEDS: VENLAFAXINE 75 MG TABLET PO SCH (09:19)
[2017-12-08] MEDS: APIXABAN 5 MG TABLET PO SCH (09:19)
[2017-12-08] MEDS: FUROSEMIDE 40 MG/4 ML VIAL IV SCH (09:20)
[2017-12-08 12:28] VITALS: BP 159/112
== END 2017-12-08 14:00 | disposition home health service (06) | DRG 202 ==
LOC: N.ED 10:38 → N.2E 14:44
PROVIDERS: ADMIT Family Medicine; ATTEND Family Medicine

== ENCOUNTER 2019-07-14 15:48 | Observation (INO) ==
[2019-07-14 17:55] LABS: Basophils % 0.5 % (0.0-0.8); Eosinophils # 0.1 10*3/uL (0.0-0.87); Eosinophils % 1.5 % (0.00-10.9); Hematocrit 40.5 VOL% (35.7-47.0); Hemoglobin 13.7 GM/DL (12.0-16.0); Immature Granulocytes % 0.3 %; Immature Granulocytes Absolute 0.02 #; Lymphocytes # 2.6 10*3/uL (1.4-4.0); Lymphocytes % 39.6 % (21.3-54.2); Mean Corpuscular HGB Conc 33.8 GM/DL (32-36); Mean Corpuscular Volume 95.7 FL (87-102); Monocytes % 9.5 % (1.7-12.7); Neutrophils % 48.6 % (38.7-73.9); Platelet Count 229 T/CUMM (130-400); Red Blood Count 4.23 MC/CUMM (3.8-5.5); Red Cell Distribution Width 13.1 % (9.3-17.3); White Blood Count 6.6 T/CUMM (4-12)
[2019-07-14] MEDS ORDERED: methylPREDNISolone SOD SUC 125 MG/2 ML VIAL IV STA (18:11)
[2019-07-14] MEDS ORDERED: ALBUTEROL/IPRATROPIUM 3 ML NEB RESP TX STA (18:11)
[2019-07-14 18:16] LABS: Albumin 3.6 G/DL (3.4-5.0); Bilirubin,Total 0.6 MG/DL (0.2-1.0); Calcium 8.9 MG/DL (8.5-10.1); Osmolality,Calculated 284.3 MOS/KG (273-304); Total Protein 7.1 G/DL (6.4-8.3)
[2019-07-14] MEDS ORDERED: ONDANSETRON 4 MG/2 ML VIAL IV PRN (20:53)
[2019-07-14] MEDS ORDERED: POTASSIUM CHLORIDE 20 MEQ TABLET PO PRN (22:25)
[2019-07-14] MEDS: cefTRIAXone 1,000 MG in SYRINGE 1 EACH IV SCH (23:29)
[2019-07-15] MEDS: VENLAFAXINE 75 MG TABLET PO SCH ×3 (00:05→21:31)
[2019-07-15] MEDS: SIMVASTATIN 40 MG TABLET PO SCH ×2 (00:06→21:31)
[2019-07-15] MEDS: rOPINIRole 1 MG TABLET PO SCH ×2 (00:06→21:30)
[2019-07-15] MEDS: PANTOPRAZOLE 40 MG TABLET PO SCH ×2 (00:06→21:30)
[2019-07-15] MEDS: TOPIRAMATE 25 MG TABLET PO SCH ×3 (00:06→21:29)
[2019-07-15] MEDS: ALBUTEROL/IPRATROPIUM 3 ML NEB RESP TX SCH ×4 (00:09→19:53)
[2019-07-15 03:30] LABS: Calcium 9.4 MG/DL (8.5-10.1); Osmolality,Calculated 287.1 MOS/KG (273-304)
[2019-07-15] MEDS: GABAPENTIN 600 MG TABLET PO SCH ×2 (10:07→21:31)
[2019-07-15] MEDS: levETIRAcetam 250 MG TABLET PO SCH (10:08)
[2019-07-15] MEDS: FUROSEMIDE 40 MG TABLET PO SCH (10:08)
[2019-07-15] MEDS: OXYBUTYNIN 5 MG TABLET PO SCH (10:11)
[2019-07-15] MEDS: methylPREDNISolone SOD SUC 40 MG/1 ML VIAL IV SCH (16:57)
[2019-07-15] MEDS: levETIRAcetam 500 MG TABLET PO SCH (21:32)
[2019-07-16] MEDS: cefTRIAXone 1,000 MG in SYRINGE 1 EACH IV SCH ×2 (00:17→22:54)
[2019-07-16] MEDS: ALBUTEROL/IPRATROPIUM 3 ML NEB RESP TX SCH ×4 (00:50→19:55)
[2019-07-16] MEDS: methylPREDNISolone SOD SUC 40 MG/1 ML VIAL IV SCH ×2 (05:06→15:52)
[2019-07-16] MEDS: VENLAFAXINE 75 MG TABLET PO SCH ×2 (09:14→21:51)
[2019-07-16] MEDS: GABAPENTIN 600 MG TABLET PO SCH ×2 (09:15→21:52)
[2019-07-16] MEDS: TOPIRAMATE 25 MG TABLET PO SCH ×2 (09:16→21:52)
[2019-07-16] MEDS: FUROSEMIDE 40 MG TABLET PO SCH (09:16)
[2019-07-16] MEDS: levETIRAcetam 250 MG TABLET PO SCH (09:16)
[2019-07-16] MEDS: OXYBUTYNIN 5 MG TABLET PO SCH (09:16)
[2019-07-16] MEDS ORDERED: PHENOL 1.4% THROAT SPRAY 177 ML BOTTLE PO ONE (20:45)
[2019-07-16] MEDS: rOPINIRole 1 MG TABLET PO SCH (21:52)
[2019-07-16] MEDS: BENZONATATE 100 MG CAPSULE PO PRN (21:52)
[2019-07-16] MEDS: levETIRAcetam 500 MG TABLET PO SCH (21:52)
[2019-07-16] MEDS: PANTOPRAZOLE 40 MG TABLET PO SCH (21:52)
[2019-07-16] MEDS: SIMVASTATIN 40 MG TABLET PO SCH (21:52)
[2019-07-17] MEDS: ALBUTEROL/IPRATROPIUM 3 ML NEB RESP TX SCH ×2 (00:37→07:20)
[2019-07-17] MEDS: methylPREDNISolone SOD SUC 40 MG/1 ML VIAL IV SCH (04:56)
[2019-07-17] MEDS: BENZONATATE 100 MG CAPSULE PO PRN (06:49)
[2019-07-17 09:07] VITALS: BP 151/75
[2019-07-17] MEDS: levETIRAcetam 250 MG TABLET PO SCH (09:41)
[2019-07-17] MEDS: TOPIRAMATE 25 MG TABLET PO SCH (09:41)
[2019-07-17] MEDS: VENLAFAXINE 75 MG TABLET PO SCH (09:41)
[2019-07-17] MEDS: OXYBUTYNIN 5 MG TABLET PO SCH (09:41)
[2019-07-17] MEDS: GABAPENTIN 600 MG TABLET PO SCH (09:41)
[2019-07-17] MEDS: FUROSEMIDE 40 MG TABLET PO SCH (09:41)
== END 2019-07-17 11:49 | disposition home or self-care (01) ==
LOC: N.ED 15:48 → N.EDINP 15:48 → N.TELEN 21:18
PROVIDERS: ADMIT Family Medicine; ATTEND Family Medicine